=== PATIENT | male | born 1940 | race Caucasian/White ===

== ENCOUNTER → 2017-06-13 | Day surgery (SDC) | payer MEDICARE ==
[~2017-06-13] MED LIST: APIX5 PO; DILTCD240 PO; KETOROLAC TROMETHAMINE 30 MG/ML (IVP) VIAL IV PUSH ONE; LIDOCAINE 1.5%/EPINEPHrine 1:200,000 PF SOLN 30 ML AMP INFIL ONE; MIDAZOLAM HCL 2 MG/2 ML VIAL ONE; ONDANSETRON HCL 4 MG/2 ML VIAL IV PUSH ONE; PROPOFOL 200 MG/20 ML AMP IV ONE; SODIUM BICARBONATE 8.4% INJ 0 ML ONE; TAB-TAB PO; VYTO10TA32 PO
--- NOTE | 2017-06-13 10:41 | TN ---
cc: RADHA TOBIN M.D. DATE OF SURGERY: 06/13/2017 PREOPERATIVE DIAGNOSIS Temporal headaches, elevated sedimentation rate with autoimmune disease. POSTOPERATIVE DIAGNOSIS Temporal headaches, elevated sedimentation rate with autoimmune disease. PROCEDURE PERFORMED Left temporal artery biopsy. SURGEON Radha Tobin. ANESTHESIA General LMA. COMPLICATIONS None. INDICATION FOR PROCEDURE Mr. Wellington is a very pleasant 76-year-old gentleman who has had problems with left-sided temporal headaches. He was seen by his neurologist, Dr. Schultz. He had a fairly extensive work-up. He was noted to have an elevated sedimentation rate. He has also had some eye problems. He was referred for temporal artery biopsy. The patient was seen and evaluated in the office. I could not palpate his temporal artery itself but I did palpate an artery on the left forehead that was very firm and rigid and felt like it had a cord. I explained to him we could do a left temporal artery biopsy using the Doppler. He was agreeable. DETAILS OF PROCEDURE The patient was identified, brought to the operating room and placed supine on the operating table. After adequate general anesthesia was achieved with LMA, the left side of the head was shaved, prepped and draped in a standard surgical fashion at the preauricular area. The Doppler was used to localize the left temporal artery. Of note the pulse was very weak and faint. It was in the appropriate anatomic position. It was localized proximally and distally and a straight line was drawn between the two segments. 0.25% Marcaine was injected in the skin and subcutaneous tissue in the left scalp. A longitudinal incision was made in the preauricular area. Dissection proceeded down into subcutaneous tissue identifying a tubular structure which appeared to be the artery. We put the Doppler on this and did not have a significant pulse, but it was clearly thickened and appeared to be the left temporal artery. It was followed down proximally toward its origin where it became quite large and I felt confident this was the temporal artery. It was then followed out distally to its first branch. Once we dissected it out over several centimeters it was tied off proximally with a 3-0 Vicryl and then the two branches were tied off distally using a 3-0 Vicryl. The artery was then transected and passed off, sent to pathology for analysis. The wound was irrigated with normal saline solution. Doppler was brought back up on the field and the entire baptist area was checked and there was no pulsatile activity noted. The wound was then irrigated a second time, injected with additional local anesthetic and then closed in two layers using a 4-0 Vicryl. Sterile dressings were applied. The patient was awakened, and brought to Recovery in stable condition. MD JAG Wakefield /10:22 AM /10:26 AM
== END | disposition home or self-care (01) ==
LOC: ESDC 07:32
PROVIDERS: ATTEND Surgery Trauma Surgery
DX: R70.0 Elevated erythrocyte sedimentation rate (principal); R51 Headache
CPT/HCPCS: 00352; 37609; 88305; J1885; J2250; J2405; J3010; 88304